=== PATIENT | male | born 1965 | race African-American/Black ===

== ENCOUNTER 2019-03-11 09:38 | Emergency (ER) | payer MEDICAID ==
[~2019-03-11] VITALS: Ht 182.9 cm; Wt 83.9 kg
[~2019-03-11 09:38] MED LIST: AMLO10TA12; ASPI81CH43; CLON0.1T; FOLI1TAB6; GABA100C PO; HYDR-1421; LOSA25TA8; METF-370; [UNRECOGNIZED DRUG - OTHER] SC
[2019-03-11 10:15] VITALS: BP 111/68
[2019-03-11] MEDS ORDERED: KETOROLAC TROMETH 60MG/2ML VIAL IM ONE (10:15)
== END 2019-03-11 11:11 | disposition home or self-care (01) ==
LOC: ER 09:43
DX: S16.1XXA Strain of muscle, fascia and tendon at neck level, initial encounter (principal); E11.9 Type 2 diabetes mellitus without complications; I10 Essential (primary) hypertension; Z79.899 Other long term (current) drug therapy; Z79.82 Long term (current) use of aspirin; V43.52XA Car driver injured in collision with other type car in traffic accident, initial encounter; Y93.89 Activity, other specified; Y92.89 Other specified places as the place of occurrence of the external cause; Y99.8 Other external cause status
CPT/HCPCS: 72040; 72100; 96372; 99283; J1885

== ENCOUNTER 2019-08-12 10:25 | Emergency (ER) | payer MEDICAID ==
[~2019-08-12] VITALS: Ht 182.9 cm; Wt 85.3 kg
[~2019-08-12 10:25] MED LIST changes: -AMLO10TA12; +AMLO10TA13
[2019-08-12 11:47] VITALS: BP 152/82
== END 2019-08-12 12:51 | disposition home or self-care (01) ==
LOC: ER 10:38
DX: I10 Essential (primary) hypertension (principal); E11.9 Type 2 diabetes mellitus without complications; Z79.899 Other long term (current) drug therapy